=== PATIENT | male | born 1980 ===

== ENCOUNTER 2016-07-29 11:02 | Emergency (ER) | payer MEDICAID ==
--- NOTE | 2016-07-30 12:11 | ER ---
ADMIT: 07/29/2016 RM/LOC: ER [facility] MR#: [id number] 2620 [facility] [address] [place] [id number] MARCY SHAMEKA SANNY [address] [place] [id number] Emergency Room Report SEX: M AGE: 35 : 1980 DATE: 07/29/2016 This 35-year-old had a seizure earlier today, witnessed by his significant other. They initially called for an ambulance, then refused diamond picker only to come in later. PAST HISTORY: Significant for a recent TBI. He is also alcoholic with no desire to stop drinking. See T sheet for remainder history and physical. A head scan shows no acute findings. His lab work did show a prolactin level at 20.2, potassium 3.3, hemoglobin 13.1. Shoulder x-ray was negative. The patient is diagnosed with seizure, he is given 1 of Ativan in the Emergency Department and then an infusion of Keppra and a prescription for Keppra, instructed to stop drinking and to follow up with his primary doctor this coming week. DIAGNOSIS: Seizures. Lake Fenton MD/ jessica JOB #: [id number] CC: Lake Fenton MD, Attending Physician
--- NOTE | 2016-08-01 09:54 | NUR ---
Received referral from ED saying pt would like help to quit drinking. Attempted to contact pt via phone. No answer, voice mail message left.
--- NOTE | 2016-08-01 10:51 | NUR ---
Received phone call from Pt. States he has thought about treatment. States he only wants to get treatment in [place] and is not interested in out of town treatment facilities. Gave pt information on [facility] and [facility]. Contact phone numbers provided to pt. Pt denies any other needs or concerns at this time.
[2016-09-12] MEDS ORDERED: FOLVITE-DPS1 MG PO (15:23)
[2016-09-12] MEDS ORDERED: KEPPRA DPS500 MG PO (15:23)
[2016-09-12] MEDS ORDERED: LACTULOSE20 GM/30 M PO (15:24)
[2016-09-12] MEDS ORDERED: LIBRIUM-DPS25 MG PO (15:24)
[2016-09-12] MEDS ORDERED: PRILOSEC DPS20 MG PO (15:25)
[2016-09-12] MEDS ORDERED: VITAMIN B1100 MG PO (15:25)
[2016-09-12] MEDS ORDERED: THERAPEUTIC MUL1 TAB PO (15:25)
[2016-10-02] MEDS ORDERED: ATIVAN-DPS1 MG PO (11:13)
[2016-10-02] MEDS ORDERED: VITAMIN B1100 MG PO (11:14)
[2016-10-02] MEDS ORDERED: PRILOSEC DPS20 MG PO (11:14)
[2016-10-02] MEDS ORDERED: KEPPRA DPS500 MG PO (11:14)
[2016-10-02] MEDS ORDERED: FOLVITE-DPS1 MG PO (11:14)
[2016-10-02] MEDS ORDERED: THERA1 EACH PO (11:15)
[2016-10-02] MEDS ORDERED: MAG-OX400 MG PO (11:15)
[2016-10-02] MEDS ORDERED: VISTARIL-DPS25 MG PO (11:16)
[2016-10-02] MEDS ORDERED: ULTRAM DPS50 MG PO (11:16)
[2016-10-02] MEDS ORDERED: MOTRIN IB200 MG PO (11:16)
[2016-10-02] MEDS ORDERED: PHENERGAN DPS25 MG PO (11:17)
[2016-10-02] MEDS ORDERED: MAALOX DPS30 ML PO (11:18)
[2016-10-02] MEDS ORDERED: COLACE-DPS100 MG PO (11:18)
[2016-10-02] MEDS ORDERED: LACTULOSE20 GM/30 M PO (11:18)
[2016-11-22] MEDS ORDERED: LIBRIUM-DPS25 MG PO (13:39)
[2016-12-17] MEDS ORDERED: KEPPRA DPS500 MG PO (10:08)
[2016-12-17] MEDS ORDERED: PEPCID DPS20 MG PO (10:08)
[2016-12-17] MEDS ORDERED: THERA-M1 EACH PO (10:08)
== END 2016-07-29 14:15 | disposition home or self-care (01) ==
LOC: ER 11:02
DX: S01.512A Laceration without foreign body of oral cavity, initial encounter (principal); R56.9 Unspecified convulsions; R00.0 Tachycardia, unspecified; Z86.19 Personal history of other infectious and parasitic diseases; Z79.01 Long term (current) use of anticoagulants; Z79.899 Other long term (current) drug therapy; X58.XXXA Exposure to other specified factors, initial encounter

== ENCOUNTER 2016-08-12 12:36 | Emergency (ER) | payer MEDICAID ==
--- NOTE | 2016-08-20 08:11 | ER ---
ADMIT: 08/12/2016 RM/LOC: ER [facility] MR#: [id number] [address] [address] SHAMEKA VIDAL [address] [place] [address] Emergency Room Report SEX: M AGE: 35 : 1980 DATE: 08/12/2016 HISTORY OF PRESENT ILLNESS: A 35-year-old, alcoholic comes in with a seizure. He has had a history of TBI in the past. He had been started on Keppra, which is there is some question whether he is taking it or not. He was drinking heavily last night. Apparently, had a seizure this morning. See T-sheet for remainder of history and physical. CBC was significant for total bilirubin of 2.1, AST is 76, and alkaline phosphatase 184. CBC had white count of 10.9 and hemoglobin of 13.2. I did speak with Dr. Snider, who recommended increasing Keppra to 500 mg 4 times a day. He is to follow up with his primary doctor this Monday. DIAGNOSIS: Seizure. Lake Fenton MD/ jessica JOB #: [id number] CC: Lake Fenton MD, Attending Physician
[2016-09-12] MEDS ORDERED: FOLVITE-DPS1 MG PO (15:23)
[2016-09-12] MEDS ORDERED: KEPPRA DPS500 MG PO (15:23)
[2016-09-12] MEDS ORDERED: LACTULOSE20 GM/30 M PO (15:24)
[2016-09-12] MEDS ORDERED: LIBRIUM-DPS25 MG PO (15:24)
[2016-09-12] MEDS ORDERED: PRILOSEC DPS20 MG PO (15:25)
[2016-09-12] MEDS ORDERED: VITAMIN B1100 MG PO (15:25)
[2016-09-12] MEDS ORDERED: THERAPEUTIC MUL1 TAB PO (15:25)
[2016-10-02] MEDS ORDERED: ATIVAN-DPS1 MG PO (11:13)
[2016-10-02] MEDS ORDERED: VITAMIN B1100 MG PO (11:14)
[2016-10-02] MEDS ORDERED: FOLVITE-DPS1 MG PO (11:14)
[2016-10-02] MEDS ORDERED: PRILOSEC DPS20 MG PO (11:14)
[2016-10-02] MEDS ORDERED: KEPPRA DPS500 MG PO (11:14)
[2016-10-02] MEDS ORDERED: THERA1 EACH PO (11:15)
[2016-10-02] MEDS ORDERED: MAG-OX400 MG PO (11:15)
[2016-10-02] MEDS ORDERED: ULTRAM DPS50 MG PO (11:16)
[2016-10-02] MEDS ORDERED: VISTARIL-DPS25 MG PO (11:16)
[2016-10-02] MEDS ORDERED: MOTRIN IB200 MG PO (11:16)
[2016-10-02] MEDS ORDERED: PHENERGAN DPS25 MG PO (11:17)
[2016-10-02] MEDS ORDERED: MAALOX DPS30 ML PO (11:18)
[2016-10-02] MEDS ORDERED: COLACE-DPS100 MG PO (11:18)
[2016-10-02] MEDS ORDERED: LACTULOSE20 GM/30 M PO (11:18)
[2016-11-22] MEDS ORDERED: LIBRIUM-DPS25 MG PO (13:39)
[2016-12-17] MEDS ORDERED: THERA-M1 EACH PO (10:08)
[2016-12-17] MEDS ORDERED: PEPCID DPS20 MG PO (10:08)
[2016-12-17] MEDS ORDERED: KEPPRA DPS500 MG PO (10:08)
== END 2016-08-12 15:05 | disposition home or self-care (01) ==
LOC: ER 12:36
DX: G40.909 Epilepsy, unspecified, not intractable, without status epilepticus (principal); F10.10 Alcohol abuse, uncomplicated; Z79.899 Other long term (current) drug therapy

== ENCOUNTER 2016-09-08 15:25 | Observation (INO) | payer MEDICAID ==
[~2016-09-08] VITALS: Ht 165.1 cm; Wt 95.9 kg
[2016-09-12] MEDS ORDERED: FOLVITE-DPS1 MG PO (15:23)
[2016-09-12] MEDS ORDERED: KEPPRA DPS500 MG PO (15:23)
[2016-09-12] MEDS ORDERED: LIBRIUM-DPS25 MG PO (15:24)
[2016-09-12] MEDS ORDERED: LACTULOSE20 GM/30 M PO (15:24)
[2016-09-12] MEDS ORDERED: PRILOSEC DPS20 MG PO (15:25)
[2016-09-12] MEDS ORDERED: THERAPEUTIC MUL1 TAB PO (15:25)
[2016-09-12] MEDS ORDERED: VITAMIN B1100 MG PO (15:25)
--- NOTE | 2016-09-13 07:52 | HP ---
ADMIT: 09/08/2016 RM/LOC: 409 [facility] MR#: [id number] [address] [address] SHAMEKA VIDAL [address] [place] [address] History and Physical SEX: M AGE: 36 : 1980 DATE OF SERVICE: CHIEF COMPLAINT: Profound anemia. HISTORY OF PRESENT ILLNESS: Devin is a 36-year-old male, whom I saw in the office yesterday September 07 for the 1st visit. He is referred by [facility] from the emergency room. He had been seen in the emergency room 2 weeks before, I believe by Dr. Fenton for his 2nd seizure. He came into the office this morning fasting for lab work and his hemoglobin was 4.5. We, therefore, contacted him and brought him in the hospital for admission for severe anemia. His past medical history is fairly complex. He states problems began in May of this year when he slipped falling down some steps at home, hit his head, did not seek medical attention until the following day when he was admitted to hospital, ended up on the ventilator in ICU for a subdural hemorrhage. He eventually went after being in the hospital for 2 weeks according to the patient, went to rehab unit for one week. He was dismissed home and said he was doing well until he had a seizure on July, I believe, . When in the emergency room, he was placed on Keppra. He said he took it for 2 days and stopped because he felt fine and then on August 12, he had a 2nd seizure, was seen in the emergency room and they put him back on Keppra, but double dose. He has had no seizures since then. He came in to see me in the office yesterday for followup. He admitted to feeling a little bit tired and fatigued, but denied any headache, lightheadedness, palpitations, or change in stool habits. He admitted yesterday to drinking a few beers once in a while, but denied any excessive alcohol use. In review of hospital records at this time, he has history of alcohol abuse and alcoholic cirrhosis. On further questioning today, he does admit now that he did have some black stools about 2 weeks ago. As vomited in the past, in case he vomited up some blood. Does not recall vomiting up any blood lately. He thinks that maybe in May he had a hole in his stomach or possible ulcer. He denies any abdominal pain at this time. He only admits to drinking a few alcohol drinks a day at this time. According to records, he was drinking up to a gallon of whiskey a day in the past. He states he has never gone through withdrawal in the past, but sometimes he gets slow, shaky when he quits drinking. Prior to coming into the hospital today, he says he had a glass of Dr Pepper with some alcohol in it. His blood alcohol level on arrival here was 160. He is not very forthcoming with his history. He had some of the history may be unreliable. PAST MEDICAL HISTORY: Obtained from records show history of alcoholic hepatitis and possible cirrhosis. Previous history of suicidal ideation in 2008, at that time, he had a gun, required hospitalization at [facility]. ALLERGIES: NONE. ADMIT: 09/08/2016 RM/LOC: 409 [facility] MR#: [id number] [facility] [address] [address] SHAMEKA VIDAL [address] [place] [address] History and Physical SEX: M AGE: 36 : 1980 MEDICATIONS: Currently taking Keppra 1 g b.i.d. and says he has been taking it regularly. SOCIAL HISTORY: Single, apparently has three children from 2 different women. He was brought into the office by a former girlfriend, named Katherin, they have a 3-year-old daughter that they share custody, but the two of them are not together anymore and they are just together for purposes of 3-year-old. He also has another ex-girlfriend with daughters 11 and 13. He does admit to smoking a pack of cigarette per day. He has used marijuana in the past and drinks alcohol fairly regularly. FAMILY HISTORY: Positive heart disease and cancer, but not able to obtain any other information. REVIEW OF SYSTEMS: IN GENERAL: He states he has felt a little more short of breath recently, but denies any fevers, chills, sweats, or any weight change. HEENT: Denies any headache, blurry vision, or double vision. PULMONARY: Denies any cough, but does have some exertional shortness of breath and dyspnea. No orthopnea, no PND. CARDIAC: Denies any chest pain. GI: As noted. He has had occasional vomiting of blood. Occasional black stool. He said the last black stool was two weeks ago. The vomiting of blood is not certain how long ago that was, but it has been more than a week. : Negative. MUSCULOSKELETAL: He has noticed some discoloration on his lower legs. Denies any leg pain. Denies any bruising. PHYSICAL EXAMINATION: GENERAL: A 36-year-old, male, appears much older than stated age. VITAL SIGNS: Blood pressure is 118/68, pulse is 79 regular, respiratory rate is 22, and temp 98.4. Height is 5 feet 5 inches, weight is 202 pounds. HEENT: Eyes; PERRLA. EOMs intact. Sclerae are somewhat pale. Lips are not pale. Throat is moist, well hydrated, not inflamed. NECK: Supple. No lymphadenopathy. No meningeal signs. LUNGS: Clear to auscultation. HEART: Regular rate. No murmur. ABDOMEN: Soft. No megaly or tenderness. /RECTAL: Deferred. EXTREMITIES: No clubbing, cyanosis, or edema. He does have some discoloration of lower extremities consistent with venous stasis type dermatitis, but there is no edema. There are no open sores. Calves are nontender. Homans sign is negative. LABORATORY DATA: As mentioned his hemoglobin at the office was 4.5, repeated here at the hospital and it was 4.4; platelets were slightly low at 120,000. Blood alcohol level was elevated at 160. Potassium slightly low at 3.6, creatinine is 1.2, alkaline phosphatase 158, AST was elevated at 53, ALT is ADMIT: 09/08/2016 RM/LOC: 409 [facility] MR#: [id number] [address] [address] SHAMEKA VIDAL [address] [facility] [place] [address] History and Physical SEX: M AGE: 36 : 1980 normal at 36. Gamma-GT is elevated to 31. Serum iron level is low at 11. Iron-binding capacity is normal at 358. Folic acid level is 5.8. B12 level was elevated at 1235. INR is slightly elevated at 1.13. Drug screen is positive for marijuana. DIAGNOSTIC IMPRESSION: 1. Subacute severe anemia, probable upper gastrointestinal bleed, will be concerned for esophageal varices. 2. Chronic alcohol abuse. 3. Recent traumatic brain injury with subdural subarachnoid hemorrhage and basilar skull fracture. 4. Alcoholic cirrhosis. 5. Marijuana abuse. 6. Tobacco abuse. PLAN: Admit to hospital at this time for type and cross anemia workup. Blood transfusions throughout surgery, consult for gastroscopy. We will place him with alcohol withdrawal protocol. Michael Crews MD/ jessica JOB #: [id number] CC: Michael Crews, Attending Physician Michael Crews, Family Physician
--- NOTE | 2016-09-26 12:38 | CO ---
ADMIT: 09/08/2016 RM/LOC: 409 [facility] MR#: [id number] [address] [address] SHAMEKA VIDAL [address] [place] [address] Consultation SEX: M AGE: 36 : 1980 DATE OF CONSULTATION: 09/09/2016 ATTENDING PHYSICIAN: Michael Crews CONSULTING PHYSICIAN: Steven Anglin MD CHIEF COMPLAINT: Anemia, history of melena and hematemesis. HISTORY OF PRESENT ILLNESS: This is a pleasant 36-year-old male patient, admitted to Dr. Crews, who has had pretty complex past medical history. It sounds like he had a fall a few weeks ago with subdural hematoma. He was treated in the ICU for a period of time. He has been home on Keppra. He denies taking any NSAIDs or pain medicine, but he has been drinking sounds like fairly heavily, and he has a past history of alcohol abuse too. He has not been on any proton pump inhibitors that I can see. He has had a couple episodes of hematemesis as well as some melena, but he reports that it has mostly been a couple weeks ago, anyhow, he presented to Dr. Crews's office with a hemoglobin of 4.4. He was admitted and he has received several units of blood now, and I was asked to see him for possible upper endoscopy. PAST MEDICAL HISTORY: Well outlined on the chart. PHYSICAL EXAMINATION: ABDOMEN: On exam, his abdomen is obese. It is soft. It is nontender throughout. No mass or organomegaly appreciated. ASSESSMENT: Anemia, question upper gastrointestinal blood loss with melena, and hematemesis. PLAN: I have recommended proceeding with EGD. I have gone through risks and benefits of this procedure in depth with the patient. He does understand all this and agrees to proceed. Steven Anglin MD/ jessica JOB #: [id number] CC: Michael Crews, Attending Physician Michael Crews, Family Physician
--- NOTE | 2016-09-29 07:21 | DS ---
ADMIT: 09/08/2016 RM/LOC: 409 [facility] MR#: [id number] [address] [address] SHAMEKA VIDAL [address] [place] [address] General Discharge Summary SEX: M AGE: 36 : 1980 ADMISSION DATE: 09/08/2016 DISCHARGE DATE: 09/11/2016 ADMITTING DIAGNOSIS: Profound anemia. DISMISSAL DIAGNOSIS: Severe anemia secondary to subacute blood loss. COMPLICATING DIAGNOSES: 1. End-stage alcoholic liver disease. 2. Esophageal varices. 3. Alcoholic liver cirrhosis. 4. Chronic alcohol abuse. 5. Seizure disorder. 6. Marijuana abuse. 7. Tobacco abuse. 8. Recent traumatic brain injury. 9. Subdural hemorrhage. CONSULTANTS: Oc Mendez MD CHIEF COMPLAINT AND HISTORY OF PRESENT ILLNESS: See history and physical for details. A 36-year-old, male, seen in the office for 1st visit for referral from [facility] from the emergency room. He had been in the emergency room 2 weeks before. At that time, his hemoglobin, I believe, were around 11. When he came in the office, his hemoglobin was 4.5, he is admitted for the severe anemia. He has a history of chronic alcohol abuse. Recently, had fallen down steps at home, hit his head, had subdural hematoma, was on the ventilator, was in rehab unit, was dismissed about a month ago. LABORATORY DATA AND IMAGING: Please see lab summary sheets. His lab data is not available at this time. Chest x-ray was normal. COURSE IN THE HOSPITAL: Devin was admitted, typed and crossed, anemia workup instituted given his severe anemia. His hemoglobin on August 12 was 13.2; on September 08, was 4.5. Blood was drawn for anemia workup, and he was transfused with 2 units of blood. EGD was performed by Dr. Mendez that showed esophageal varices and gastritis. After transfusion of 2 units, his hemoglobin was 5.3. He was given another 2 units of packed red blood cells. Electrolytes were sodium 140, potassium 3.9, chloride 109, CO2 of 22, BUN 10, creatinine 0.7, glucose 88. Serum ammonia was elevated at 73. Hemoglobin after his 3rd and 4th units was 7.6. The following day, hemoglobin was 7.2. Liver enzymes were negative. INR was elevated. The patient refused lactulose. He was stable at time of dismissal, not having further bleeding, hemoglobin was stable, vital signs were stable, he was alert. DISCHARGE MEDICATIONS: 1. Folvite 1 mg daily. ADMIT: 09/08/2016 RM/LOC: 409 [facility] MR#: [id number] [address] [address] SHAMEKA VIDAL [address] [place] [address] General Discharge Summary SEX: M AGE: 36 : 1980 2. Keppra 1000 mg b.i.d. 3. Lactulose 30 mg b.i.d. 4. Librium 25 mg b.i.d. for three days, then daily for three days, then stop. 5. Multivitamin 1 daily. 6. Vitamin B 1 daily. DISCHARGE INSTRUCTIONS: He will be seen back in the office in 1 to 2 weeks for followup. He is to follow up with [facility]. He is put on some Prilosec 20 mg b.i.d. He was strongly advised that he needs to stop drinking completely due to his severe liver disease and esophageal varices. Michael Crews MD/ jessica JOB #: [id number] CC: Michael Crews MD, Attending Physician Michael Crews MD, Family Physician
[2016-10-02] MEDS ORDERED: ATIVAN-DPS1 MG PO (11:13)
[2016-10-02] MEDS ORDERED: KEPPRA DPS500 MG PO (11:14)
[2016-10-02] MEDS ORDERED: FOLVITE-DPS1 MG PO (11:14)
[2016-10-02] MEDS ORDERED: PRILOSEC DPS20 MG PO (11:14)
[2016-10-02] MEDS ORDERED: VITAMIN B1100 MG PO (11:14)
[2016-10-02] MEDS ORDERED: MAG-OX400 MG PO (11:15)
[2016-10-02] MEDS ORDERED: THERA1 EACH PO (11:15)
[2016-10-02] MEDS ORDERED: ULTRAM DPS50 MG PO (11:16)
[2016-10-02] MEDS ORDERED: MOTRIN IB200 MG PO (11:16)
[2016-10-02] MEDS ORDERED: VISTARIL-DPS25 MG PO (11:16)
[2016-10-02] MEDS ORDERED: PHENERGAN DPS25 MG PO (11:17)
[2016-10-02] MEDS ORDERED: MAALOX DPS30 ML PO (11:18)
[2016-10-02] MEDS ORDERED: LACTULOSE20 GM/30 M PO (11:18)
[2016-10-02] MEDS ORDERED: COLACE-DPS100 MG PO (11:18)
--- NOTE | 2016-10-04 13:26 | OR ---
ADMIT: 09/08/2016 RM/LOC: 409 [facility] MR#: [id number] [address] [address] SHAMEKA VIDAL [address] [place] [address] Operative/Delivery Room Report SEX: M AGE: 36 : 1980 SURGERY DATE: 09/09/2016 SURGEON: Oc Mendez MD PREOPERATIVE DIAGNOSIS: Anemia, question of upper gastrointestinal bleed. POSTOPERATIVE DIAGNOSIS: Grade 2 one area of some probable grade 3 esophageal varices. Diffuse gastritis with some gastric varices. Couple of 3 small antral ulcers. No active bleeding seen. PROCEDURES: EGD with biopsies of the gastric antrum, rule out H pylori. ANESTHESIA: MAC anesthesia. ESTIMATED BLOOD LOSS: Less than 5. INDICATION FOR PROCEDURE: Please see H and P. PROCEDURE IN DETAIL: After the risks, benefits, possible complications, and the alternatives had been explained, and informed consent had been obtained, the patient was taken back to the procedure room, underwent sedation. The flexible EGD scope was introduced. The esophagus was seen in the first picture and there for sure grade 2 and an area it looked like grade 3 esophageal varices. No active bleeding seen. Appeared to be kind of a distal esophageal erosion or ulcer, maneuvered through here, through the stomach, down in the second portion of the duodenum, seen in the third picture. Duodenum and duodenal bulb appeared okay. The gastric antrum is seen in picture #2, does show a couple of small ulcerations. No active bleeding was seen. Retroflexion of the scope shows some gastropathy/gastric varices and diffuse gastropathy. I did do a couple of antral biopsies just to rule out H. pylori. A little bit more oozing than sometimes, but did not see anything worrisome. After doing the biopsies, the scope was slowly withdrawn, inspecting the remainder of the esophagus on the way out and the procedure was terminated. Tolerated it well, was taken to recovery room in stable and satisfactory condition. Oc Mendez MD/ jessica JOB #: [id number] CC: Michael Crews, Attending Physician Michael Crews, Family Physician
[2016-11-22] MEDS ORDERED: LIBRIUM-DPS25 MG PO (13:39)
[2016-12-17] MEDS ORDERED: THERA-M1 EACH PO (10:08)
[2016-12-17] MEDS ORDERED: KEPPRA DPS500 MG PO (10:08)
[2016-12-17] MEDS ORDERED: PEPCID DPS20 MG PO (10:08)
== END 2016-09-11 12:30 | disposition home or self-care (01) ==
LOC: 4PCU 15:25
PROVIDERS: ADMIT Family Medicine
PROC: 0DB68ZX Excision of Stomach, Via Natural or Artificial Opening Endoscopic, Diagnostic (ICD-10-PCS; principal; 2016-09-09)
DX: K29.50 Unspecified chronic gastritis without bleeding (principal); F17.210 Nicotine dependence, cigarettes, uncomplicated; K70.30 Alcoholic cirrhosis of liver without ascites; Z79.899 Other long term (current) drug therapy

== ENCOUNTER 2016-09-29 10:28 | Emergency (ER) | payer MEDICAID ==
[~2016-09-29 10:28] MED LIST: FOLVITE-DPS1 MG PO; KEPPRA DPS500 MG PO; LACTULOSE20 GM/30 M PO; LIBRIUM-DPS25 MG PO; PRILOSEC DPS20 MG PO; THERAPEUTIC MUL1 TAB PO; VITAMIN B1100 MG PO
--- NOTE | 2016-09-30 16:12 | ER ---
ADMIT: 09/29/2016 RM/LOC: ER [facility] MR#: [id number] 2620 [facility] [address] [place] [phone] SHAMEKA VIDAL [address] [place] [address] Emergency Room Report SEX: M AGE: 36 : 1980 DATE: 09/29/2016 TIME: 1028 hours. Please refer to my T-sheet for complete H and P. Briefly, the patient is a 36- year-old who was sent over from [facility] for just increased confusion. They got him on several medications. He has a known history of alcohol abuse. He has been sober for 2 weeks. He also had a recent intracranial hemorrhage, which they were concerned about. He actually almost fell couple times. PHYSICAL EXAM: VITAL SIGNS: Here blood pressure 120/76, pulse 92, respirations 16, temp 97.7, and sat 100% GENERAL: He is in no acute distress. HEENT: Grossly normal. LUNGS: Clear. HEART: Regular. ABDOMEN: Soft. SKIN: No rash. NEURO: He is alert, oriented, really no focal findings. No cerebellar findings at this time. EMERGENCY DEPARTMENT COURSE: CBC was normal except hemoglobin 8.1, platelets 134. His hemoglobin is stable from his last several here. Chemistries normal except potassium 3.6, alkaline phosphatase 175, AST 49. CT of his head showed no acute findings. It showed intracranial hemorrhages and improving. EKG was sinus rhythm, rate 78, no changes. He was able to walk here, very stable and we are going to allow him to be discharged. ASSESSMENT: 1. General weakness secondary to medications from [facility] I believe that he is using to come off alcohol. 2. Anemia. 3. History of ETOH abuse. PLAN: May return to [facility] or continue his sobriety. Return if worse. Fluids. Rest. Follow up with Dr. Crews. Shar Nash MD/ jessica JOB #: [id number] CC: Shar Nash MD, Attending Physician Michael Crews MD, Family Physician
[2016-10-02] MEDS ORDERED: ATIVAN-DPS1 MG PO (11:13)
[2016-10-02] MEDS ORDERED: FOLVITE-DPS1 MG PO (11:14)
[2016-10-02] MEDS ORDERED: KEPPRA DPS500 MG PO (11:14)
[2016-10-02] MEDS ORDERED: PRILOSEC DPS20 MG PO (11:14)
[2016-10-02] MEDS ORDERED: VITAMIN B1100 MG PO (11:14)
[2016-10-02] MEDS ORDERED: THERA1 EACH PO (11:15)
[2016-10-02] MEDS ORDERED: MAG-OX400 MG PO (11:15)
[2016-10-02] MEDS ORDERED: MOTRIN IB200 MG PO (11:16)
[2016-10-02] MEDS ORDERED: ULTRAM DPS50 MG PO (11:16)
[2016-10-02] MEDS ORDERED: VISTARIL-DPS25 MG PO (11:16)
[2016-10-02] MEDS ORDERED: PHENERGAN DPS25 MG PO (11:17)
[2016-10-02] MEDS ORDERED: COLACE-DPS100 MG PO (11:18)
[2016-10-02] MEDS ORDERED: MAALOX DPS30 ML PO (11:18)
[2016-10-02] MEDS ORDERED: LACTULOSE20 GM/30 M PO (11:18)
[2016-11-22] MEDS ORDERED: LIBRIUM-DPS25 MG PO (13:39)
[2016-12-17] MEDS ORDERED: PEPCID DPS20 MG PO (10:08)
[2016-12-17] MEDS ORDERED: KEPPRA DPS500 MG PO (10:08)
[2016-12-17] MEDS ORDERED: THERA-M1 EACH PO (10:08)
== END 2016-09-29 12:24 | disposition home or self-care (01) ==
LOC: ER 10:28
DX: D64.9 Anemia, unspecified (principal); G40.909 Epilepsy, unspecified, not intractable, without status epilepticus

== ENCOUNTER 2016-09-30 00:06 | Inpatient (IN) | payer MEDICAID ==
[~2016-09-30] VITALS: Ht 165.1 cm; Wt 91.3 kg
--- NOTE | 2016-09-30 19:58 | ER ---
ADMIT: 09/30/2016 RM/LOC: 530 MR#: [id number] [address] [address] SHAMEKA VIDAL [address] [place] [address] Emergency Room Report SEX: M AGE: 36 : 1980 DATE: 09/30/2016 HISTORY OF PRESENT ILLNESS: The patient is a 36-year-old male with a past medical history of end-stage alcoholic liver disease, esophageal varices, traumatic brain injury, subdural hematoma, and seizure disorder, was brought here to the ER with chief complaint of multiple ground-level falls and feeling generalized weak and dizzy. The patient had been in the ER this morning for the same reason and had head CT, which did not show any acute changes and also a CBC and CMP which were noncontributory and the patient received IV fluids and was discharged to [facility]. The patient was sent back because he had another fall, this fall had no head trauma or loss of consciousness also. The patient states he is generally weak and he could barely walk and per partner, friend in the ER, the patient is confused. PHYSICAL EXAMINATION: VITAL SIGNS: The patient has stable vitals. GENERAL: Looked very tired and fatigued, answers the questions, cooperative, alert and oriented to person, place, and time. HEENT/NECK: Conjunctiva is not pale, sclera is not icteric. Trachea is midline. No stridor, no bruit. HEART: Normal S1, S2 in the heart without any murmurs. LUNGS: Normal bilateral equal breath sounds. ABDOMEN: Soft. Abdomen has no tenderness or rebound or guarding. EXTREMITIES: Also, noncontributory. The patient's ammonia level was 110. Considering the patient's multiple recent ground-level falls, dizziness, elevated ammonia and knowing that the patient is off the lactulose, hepatic encephalopathy is also at one of our top differentials. The patient received IV fluid in the ER, and orthostatic vital signs are negative. Family Medicine was consulted, and the patient was admitted for further followups and treatments. Sg Weiner MD/ jessica JOB #: [id number] CC: Sana Johnston MD, Attending Physician Michael Crews MD, Family Physician
[2016-10-02] MEDS ORDERED: ATIVAN-DPS1 MG PO (11:13)
[2016-10-02] MEDS ORDERED: PRILOSEC DPS20 MG PO (11:14)
[2016-10-02] MEDS ORDERED: KEPPRA DPS500 MG PO (11:14)
[2016-10-02] MEDS ORDERED: VITAMIN B1100 MG PO (11:14)
[2016-10-02] MEDS ORDERED: FOLVITE-DPS1 MG PO (11:14)
[2016-10-02] MEDS ORDERED: THERA1 EACH PO (11:15)
[2016-10-02] MEDS ORDERED: MAG-OX400 MG PO (11:15)
[2016-10-02] MEDS ORDERED: ULTRAM DPS50 MG PO (11:16)
[2016-10-02] MEDS ORDERED: MOTRIN IB200 MG PO (11:16)
[2016-10-02] MEDS ORDERED: VISTARIL-DPS25 MG PO (11:16)
[2016-10-02] MEDS ORDERED: PHENERGAN DPS25 MG PO (11:17)
[2016-10-02] MEDS ORDERED: COLACE-DPS100 MG PO (11:18)
[2016-10-02] MEDS ORDERED: LACTULOSE20 GM/30 M PO (11:18)
[2016-10-02] MEDS ORDERED: MAALOX DPS30 ML PO (11:18)
--- NOTE | 2016-10-06 08:12 | HP ---
ADMIT: 09/30/2016 RM/LOC: 530 [facility] MR#: [id number] [address] [address] SHAMEKA VIDAL [address] [place] [address] History and Physical SEX: M AGE: 36 : 1980 DATE OF SERVICE: CHIEF COMPLAINT: Confusion and falls. HISTORY OF PRESENT ILLNESS: The patient is a 36-year-old, male with a history of end-stage liver disease due to alcoholic hepatitis, seizure disorder, fall, traumatic brain injury with subdural hematoma, and esophageal varices who was brought into the ER for the 2nd time in 2 days due to confusion and falls. Yesterday in the emergency room, he had some confusion. He had been on several medications including lactulose, but he almost fallen a few times. He was evaluated and weakness was thought to be due to the medications that he was using to withdraw from alcohol. So, he was sent back to [facility] where he has been residing. He presented again last night with continued generalized weakness, dizziness, and fall. The fall was witnessed. He did not have any head trauma or loss of consciousness, but the patient seemed very confused. Workup in the ER revealed pneumonia level of 110. The patient is admitted. He had not been taking any of his lactulose. He was resuscitated with IV fluids. Vital signs are normal, but he was admitted for his hepatic encephalopathy and end-stage liver disease. PAST MEDICAL HISTORY: End-stage liver disease with cirrhosis, seizure disorder following a fall with TBI and subdural hematoma, history of anemia from bleeding esophageal varices, history of alcoholism, history of suicidal ideation, and GERD. SOCIAL HISTORY: The patient is single. He has three children from 2 different women. Smokes about a pack cigarettes per day. He is not using alcohol any further, has used marijuana in the past. FAMILY HISTORY: Positive for heart disease and cancer. MEDICATIONS: 1. Lorazepam 1-2 mg every 6 hours p.r.n. 2. Keppra 1000 mg twice daily. 3. Omeprazole 20 mg twice daily. 4. Thiamine. 5. Folic acid. 6. Multivitamin tablets daily. 7. Magnesium 400 mg daily. 8. Vistaril 25-50 mg every 6-8 hours as needed. 9. Trazodone 50-150 mg at bedtime as needed. ALLERGIES: NO KNOWN MEDICAL ALLERGIES. REVIEW OF SYSTEMS: In general, the patient has noted some confusion, dizziness, and weakness, but denies any fevers, chills, sweats, or weight change. Denies any headache or visual problems. No cough but does have some- exertional shortness of breath due to deconditioning. Denies any chest pain. Has previously had anemia and GI bleed from esophageal varices but denies any ADMIT: 09/30/2016 RM/LOC: 530 [facility] MR#: [id number] [address] [place] [id number] SHAMEKA VIDAL TEJAL [address] [place] [address] History and Physical SEX: M AGE: 36 : 1980 vomiting of blood or black, tarry stools. PHYSICAL EXAMINATION: VITAL SIGNS: Temp 97.3, pulse 86, respirations 16, blood pressure 126/71, O2 saturation 100% on room air. GENERAL: The patient appears to be a 36-year-old, male, who looks older than stated age. The patient is alert, but is somewhat confused with slowed mentation. HEENT: Normocephalic and atraumatic. EOMI, no scleral icterus. NECK: No JVD. No lymphadenopathy. No carotid bruit noted. LUNGS: Clear to auscultation bilaterally. CARDIAC: Regular rhythm and rate. No murmurs, rubs, or gallops. ABDOMEN: Soft, nontender, and nondistended. EXTREMITIES: No clubbing, cyanosis, or edema. LABS: On admission, ammonia was 110, repeat this morning is 67, ethanol none detected. CBC shows a white count of 8.7, hemoglobin of 7.7, platelets of 149. BMP is normal except for a glucose of 101. Head CT done in the ER shows resolving hematomas, but no recurrent bleed or acute changes. ASSESSMENT: 1. End-stage liver disease due to alcoholic cirrhosis. 2. Hepatic encephalopathy. 3. History of seizures. 4. History of fall with resulting subdural hematoma and traumatic brain injury. 5. History of alcoholism. PLAN: We will repeat the patient's ammonia level, CMP, and hemoglobin this afternoon. We will add a type and cross to his blood and labs. If he drops below 7, we will need to transfuse him though this is likely delusional, and he likely has a chronic anemia due to his end-stage liver disease. We will ask social Work to see him for discharge planning as he is currently residing in [facility] recovering from alcohol. He can have a regular diet, and we will continue his home medications. Larry Santacruz MD Resident / Michael Crews MD / jessica JOB #: [id number] CC: Michael Crews, Attending Physician Michael Crews, Family Physician
--- NOTE | 2016-10-11 07:29 | DS ---
ADMIT: 09/30/2016 RM/LOC: 530 [facility] MR#: [id number] [id number] [facility] [address] [place], [place] [address] SHAMEKA VIDAL [address] [place] [address] Discharge Summary SEX: M AGE: 36 : 1980 ADMISSION DATE: 09/30/2016 DISCHARGE DATE: 10/01/2016 DISCHARGE DIAGNOSES: 1. End-stage alcoholic cirrhosis with liver failure. 2. Hepatic encephalopathy with hyperammonemia. 3. Chronic ETOH abuse. 4. Seizures, status post traumatic subdural hematoma. BRIEF HISTORY OF PRESENT ILLNESS: The patient is a 36-year-old, male with history of end-stage liver disease due to alcoholic hepatitis, who is brought in today from [facility] where he has been recovering from alcohol addiction. He was found to have stopped taking his lactulose, which he takes for his high ammonia levels and history of hepatic encephalopathy. In the ER, his ammonia was found to be elevated at 110. He did not have any alcohol or illicit drugs on check. He was admitted, restarted on lactulose and his mentation cleared. His primary, Dr. Crews, discussed with his family members the terminal nature of his illness and the severity of his condition and the importance of staying on his medications. He was stable and discharged back to [facility]. Please see the chart for his medications. None were changed at this hospitalization. He is to follow up with Dr. Crews in 1-2 weeks from discharge. Larry Santacruz MD Resident / Michael Crews MD / vdg JOB #: [id number] CC: Michael Crews MD, Attending Physician Michael Crews MD, Family Physician
[2016-11-22] MEDS ORDERED: LIBRIUM-DPS25 MG PO (13:39)
[2016-12-17] MEDS ORDERED: PEPCID DPS20 MG PO (10:08)
[2016-12-17] MEDS ORDERED: KEPPRA DPS500 MG PO (10:08)
[2016-12-17] MEDS ORDERED: THERA-M1 EACH PO (10:08)
== END 2016-10-01 11:52 | disposition home or self-care (01) | DRG 442 ==
LOC: ER 00:06 → 5MS 03:00
PROVIDERS: ADMIT Family Medicine
DX: K72.90 Hepatic failure, unspecified without coma (principal); I85.00 Esophageal varices without bleeding; K70.10 Alcoholic hepatitis without ascites; F10.20 Alcohol dependence, uncomplicated; D50.0 Iron deficiency anemia secondary to blood loss (chronic); D63.8 Anemia in other chronic diseases classified elsewhere; K70.30 Alcoholic cirrhosis of liver without ascites; G40.909 Epilepsy, unspecified, not intractable, without status epilepticus; F17.210 Nicotine dependence, cigarettes, uncomplicated; Z91.81 History of falling; Z87.820 Personal history of traumatic brain injury; Z91.14 Patient's other noncompliance with medication regimen

== ENCOUNTER 2016-10-07 03:00 | Emergency (ER) | payer MEDICAID ==
[~2016-10-07 03:00] MED LIST changes: +ATIVAN-DPS1 MG PO; +COLACE-DPS100 MG PO; +MAALOX DPS30 ML PO; +MAG-OX400 MG PO; +MOTRIN IB200 MG PO; +PHENERGAN DPS25 MG PO; +THERA1 EACH PO; +ULTRAM DPS50 MG PO; +VISTARIL-DPS25 MG PO
--- NOTE | 2016-10-12 07:51 | ER ---
ADMIT: 10/07/2016 RM/LOC: ER [facility] MR#: [id number] [address] [address] SHAMEKA VIDAL [address] [place] [address] Emergency Room Report SEX: M AGE: 36 : 1980 DATE: 10/07/2016 CHIEF COMPLAINT: Concern he might have had a seizure. HISTORY OF PRESENT ILLNESS: The patient is a 36-year-old male with a long history of alcohol abuse and seizure disorder who presents to the ER complaining of some concern of possible seizure. He states that he has been trying to quit drinking, but did have some drinks with some friends this evening. While he was sitting in the couch a friend next to him noted that he felt like the patient was twitching some, woke him up and said he should come to get checked out. Other than being a little tired, the patient has no complaints at this time. He denies any chest pain, shortness of breath, abdominal pain, nausea, vomiting, or diarrhea. He states that he has been an alcohol treatment before and has been considering going into a program at this time, but does not particularly want to go to [facility]. PAST MEDICAL HISTORY: Significant for anemia, alcoholic liver disease, and alcoholic abuse. MEDICATIONS: See nurse's note. ALLERGIES: SEE NURSE'S NOTE. SOCIAL HISTORY: The patient admits to drinking alcohol. Denies smoking or drug use. PHYSICAL EXAMINATION: VITAL SIGNS: Blood pressure is 117/74, pulse 91, respirations 16, temp 96.9, sats 99% on room air. GENERAL: The patient is alert, oriented, in no distress. HEENT: Head is atraumatic. Pupils are equal, round, and reactive to light. There is no scleral icterus. HEART: Regular rate and rhythm. LUNGS: Clear auscultation. ABDOMEN: Soft and nontender. SKIN: Warm and dry. The patient moves all extremities equally. He has grossly normal motor sensory exam. He does have a few bruises on his lower extremities. ADMIT: 10/07/2016 RM/LOC: [facility] MR#: [id number] [address] [address] SHAMEKA VIDAL [address] [place] [address] Emergency Room Report SEX: M AGE: 36 : 1980 LABORATORY DATA: White count 6.8, hemoglobin 8.0, platelets 132, and electrolytes are normal. AST is 60, ALT of 39, ammonia 51, INR is 1.2. Prolactin is 27.3. EMERGENCY DEPARTMENT COURSE: The patient was stable in the emergency department and his description does not sound likely that he had a seizure, and his prolactin was not elevated here. I believe the patient is safe to be discharged home, and he is to follow up with Dr. Crews. Continue with his home medications. DIAGNOSIS: Alcohol abuse. Bon Soliman MD/ jessica JOB #: [id number] CC: Bon Soliman MD, Attending Physician Michael Crews MD, Family Physician
[2016-11-22] MEDS ORDERED: LIBRIUM-DPS25 MG PO (13:39)
[2016-12-17] MEDS ORDERED: KEPPRA DPS500 MG PO (10:08)
[2016-12-17] MEDS ORDERED: PEPCID DPS20 MG PO (10:08)
[2016-12-17] MEDS ORDERED: THERA-M1 EACH PO (10:08)
== END 2016-10-07 06:30 | disposition home or self-care (01) ==
LOC: ER 03:00
DX: F10.10 Alcohol abuse, uncomplicated (principal); D64.9 Anemia, unspecified; Z79.899 Other long term (current) drug therapy

== ENCOUNTER 2016-11-03 20:50 | Inpatient (IN) | payer SELFPAY ==
[~2016-11-03] VITALS: Ht 165.1 cm; Wt 94.0 kg
--- NOTE | ~2016-11-03 | FD ---
ADMIT: 11/04/2016 RM/LOC: 305 [facility] MR#: [id number] [address] [address] MARCY[address]KA [address] [place] [address] Final Diagnosis SEX: M AGE: 36 : 1980 ADMISSION DATE: 11/04/2016 DISCHARGE DATE: 11/04/2016 FINAL DIAGNOSIS: Seizure disorder. COMPLICATING DIAGNOSIS: 1. Medication noncompliance. 2. End-stage alcoholic liver disease. 3. Gastroesophageal reflux. 4. Diabetes mellitus. 5. Anemia secondary to chronic gastrointestinal blood loss. Michael Crews MD/ jessica JOB #: [id number] CC: Michael Crews MD, Attending Physician Lory Rossa MD, Family Physician
[2016-11-04] MEDS ORDERED: ATIVAN-DPS1 MG PO (18:15)
[2016-11-04] MEDS ORDERED: KEPPRA1000 MG PO (18:15)
[2016-11-04] MEDS ORDERED: PRILOSEC DPS20 MG PO (18:15)
[2016-11-04] MEDS ORDERED: FOLIC ACID1 MG PO (18:16)
[2016-11-04] MEDS ORDERED: VITAMIN B1100 MG PO (18:16)
[2016-11-04] MEDS ORDERED: THERA1 EACH PO (18:16)
[2016-11-04] MEDS ORDERED: VISTARIL-DPS25 MG PO (18:17)
[2016-11-04] MEDS ORDERED: DESYREL-DPS50 MG PO (18:17)
[2016-11-04] MEDS ORDERED: MAG-OX400 MG PO (18:17)
[2016-11-04] MEDS ORDERED: MOTRIN IB200 MG PO (18:18)
[2016-11-04] MEDS ORDERED: COLACE-DPS100 MG PO (18:18)
[2016-11-04] MEDS ORDERED: LACTULOSE20 GM/30 M PO (18:18)
[2016-11-04] MEDS ORDERED: MAALOX DPS30 ML PO (18:19)
[2016-11-04] MEDS ORDERED: PHENERGAN DPS25 MG PO (18:19)
--- NOTE | 2016-11-04 20:34 | CO ---
ADMIT: 11/04/2016 RM/LOC: 305 [facility] MR#: [id number] [address] [address] M[address]AMEKA [address] [place] [address] Consultation SEX: M AGE: 36 : 1980 DATE OF CONSULTATION: 11/04/2016 ATTENDING PHYSICIAN: Michael Crews CONSULTING PHYSICIAN: Antonio Yancey MD REASON FOR CONSULTATION: Seizure. HISTORY OF PRESENT ILLNESS: This is a 36-year-old male with history of a seizure disorder, end-stage liver disease, and history of alcohol use. He typically has maintained on Keppra for seizures. He was at his daughter's softball game and had a seizure there. Apparently, suffered a dislocated shoulder during the event. He had another seizure in the emergency room. When he had arrived to the intensive care unit, he was somewhat postictal and also little bit lethargic, provided Ativan. That is subsequently cleared. He has been resumed on his Keppra medication and is not had another seizure. Currently, he is awake and alert and denies any complaints. He denies any shortness of breath. He denies any history of previous lung disease. He did have a hemoglobin of 6.7 earlier, but tends to run a low hemoglobin in the 7 range. He did receive a transfusion earlier and subsequent hemoglobin was 7.8. PAST MEDICAL HISTORY: 1. Alcohol use. 2. End-stage liver disease. 3. Seizure disorder. 4. Esophageal varices. 5. Gastroesophageal reflux disease. 6. Diabetes. MEDICATIONS: Currently are: 1. Keppra. 2. Lactulose. 3. Nicotine. 4. Pepcid. 5. Protonix. 6. He is also on IV fluids, thiamine, and folic acid. ALLERGIES: NONE. SOCIAL HISTORY: According to the chart, he smoked but he denies tobacco use to me. FAMILY HISTORY: Positive for heart disease and cancer. REVIEW OF SYSTEMS: GENERAL: No fevers or chills. SKIN: No rash. HEAD AND NECK: No witnessed swallowing or aspiration event. EYES: No visual problems. ADMIT: 11/04/2016 RM/LOC: 305 [facility] MR#: [id number] [address] [address] [address] [place] [address] Consultation SEX: M AGE: 36 : 1980 RESPIRATORY: Listed above. CARDIAC: No anginal symptoms, orthopnea, or edema. GI: As above. : No dysuria, frequency, or hematuria. MUSCULOSKELETAL: No new arthritis or arthralgias. NEUROLOGIC: As above. PHYSICAL EXAMINATION: VITAL SIGNS: Listed on the chart and are reviewed. GENERAL: Pleasant male, awake and cooperative. SKIN: Warm and dry. No rash. HEAD AND NECK: Normocephalic. No scleral icterus. Oropharynx is clear. NECK: Supple. LUNGS: Clear to auscultation. Respirations are unlabored. HEART: Regular rate and rhythm. ABDOMEN: Protuberant, but soft. EXTREMITIES: Revealed no clubbing or cyanosis. NEUROLOGIC: He is awake, alert, and cooperative. No focal deficits. LABS AND DIAGNOSTIC DATA: Chest x-ray is clear. No evidence of infiltrate. White count 5.4, hemoglobin 7.8, and platelet count 33,000. BUN 8 and creatinine 0.5. ASSESSMENT: 1. Seizure disorder. 2. End-stage liver disease. 3. Gastroesophageal reflux disease. 4. Diabetes mellitus. 5. Anemia. It appears the seizures may have been secondary to noncompliant with his medications. He has been seizure free since admission and currently is ADMIT: 11/04/2016 RM/LOC: 305 [facility] MR#: [id number] [address] [address] SHAMEKA VIDAL [address] [place] [address] Consultation SEX: M AGE: 36 : 1980 neurologically intact. Anemia is noted, although a lot of this is chronic and he has received transfusion. There was no overt active bleeding identified. Support in the intensive care unit will be provided. I think he is very stable from an ICU standpoint and likely can be moved to a general care bed versus even the possibility of discharge has been considered by his primary care physician. Further workup and therapeutic maneuvers depending on his course. Thank you for allowing us to participate in the care of this patient. As always, if you have any questions, please feel free to contact. Antonio Yancey MD/ jessica JOB #: [id number] CC: Michael Crews, Attending Physician Lory Rosas, Family Physician Michael Crews MD
--- NOTE | 2016-11-08 20:15 | ER ---
ADMIT: 11/04/2016 RM/LOC: 305 [facility] MR#: [id number] [address] [address] SHAMEKA VIDAL [address] [place] [address] Emergency Room Report SEX: M AGE: 36 : 1980 DATE: 11/03/2016 TIME: 2050 hours. Please refer to my T-sheet for complete H and P. HISTORY OF PRESENT ILLNESS: Briefly, the patient is a 36-year-old who has a known history of a seizure disorder. He said he was watching a ball game when he does not remember what happened. The witnesses said he had a seizure. He has a known history of seizure disorder. He has not been taking his medications for over a week. He has a known history of alcohol abuse, pancytopenia, esophageal varices, liver failure, comes in complaining of right shoulder pain, and had a witnessed seizure. He is here for evaluation. PHYSICAL EXAMINATION: VITAL SIGNS: Blood pressure 136/82, pulse 102, respirations 24, temp 100.4, sat 94%. GENERAL: He is postictal. HEENT: Head is atraumatic and normocephalic. Pupils equal and reactive to light. Extraocular muscles intact. TMs clear. Nose clear. Throat clear. He does have a bitten lip. NECK: Soft and supple. LUNGS: Clear. HEART: Regular. ABDOMEN: Soft. EXTREMITIES: Grossly normal except for his right shoulder. He is having severe pain. EMERGENCY DEPARTMENT COURSE: We gave him Ativan 1 mg IV of 500 mL bolus with sepsis protocol fluids perdomo because he met the criteria. He was given 1 g of Keppra IV a total of 3 of Ativan was given because he recedes in the Emergency Department. The seizures were more controlled. We did an x-ray of his right shoulder revealed a posterior dislocation. I gave him 15 of morphine IV. It was unsuccessful to get him to relax enough to reduce this. I then gave him etomidate 10 IV at assistance in the Emergency Department from the orthopedic crew, we were able to get it reduced. He was placed in immobilizer. His CBC came back normal except hemoglobin 7.7 and platelets 56. Chemistries normal except CO2 17 and AST 56. His ETOH was 15. He will also receive thiamine 100 mg IM. He will be admitted to the hospital. I talked to Dr. Crews on city call. ASSESSMENT: ADMIT: 11/04/2016 RM/LOC: 305 [facility] MR#: [id number] [address] [address] SHAMEKA VIDAL [address] [place] [address] Emergency Room Report SEX: M AGE: 36 : 1980 1. Seizure with a known seizure disorder and noncompliant. 2. Right shoulder posterior dislocation reduced in the emergency room with conscious sedation using etomidate 10 mg IV. 3. EtOH abuse. He has not drank for a couple days with an EtOH level of 15. 4. Pancytopenia with a known history of this and stable for him. 5. Noncompliant. 6. Reduction of his shoulder. 7. Conscious sedation done in the Emergency Department. PLAN: Admit to the hospital. Critical care time was 70 minutes excluding procedures. Shar Nash MD/ jessica JOB #: [id number] CC: Michael Crews MD, Attending Physician Lory Rosas MD, Family Physician
--- NOTE | 2016-11-11 07:01 | HP ---
ADMIT: 11/04/2016 RM/LOC: 305 [facility] MR#: [id number] [address] [address] SHAMEKA VIDAL [address] [place] [address] History and Physical SEX: M AGE: 36 : 1980 DATE OF SERVICE: CHIEF COMPLAINT: Seizure. HISTORY OF PRESENT ILLNESS: This is a 36-year-old male with a past medical history significant for chronic alcohol abuse, end-stage liver disease with cirrhosis, seizure disorder, anemia, and history of esophageal varices. He was admitted with seizures and a right posterior shoulder dislocation. Apparently, the patient was at a softball game when he began seizing. According to witnesses, the seizure lasted for approximately 5 minutes. During the seizure, he fell down and dislocated his right shoulder. Upon arrival to the Emergency Department, the patient was postictal. There was no sign of loss of bowel or bladder function. The patient was in a lot of pain at that time due to his right shoulder. The patient is unable to tell me where he is or the date at this time, but he is able to admit that he is currently drinking a bottle of whiskey every 1 to 2 days and his last drink was Monday. He denies any recent hematemesis. He states that his last seizure was on Monday, and at that time, he took his Keppra. He is supposed to take his Keppra every day, but he states that he only takes it occasionally. In the ER, his vitals showed a blood pressure of 136/82, pulse of 102, respirations 25, and temp 100.4. While in the Emergency Department, he had another 2-minute seizure. He received a total of 3 mg of Ativan. Due to the right shoulder dislocation, several attempts were made to reduce that, but we were unsuccessful despite giving 15 mg of IV morphine for pain. Dr. Quick was then consulted and was able to reduce the shoulder with the use of 10 mg of IV etomidate. The patient was then placed in an immobilizer. PAST MEDICAL HISTORY: Of note, the patient was last admitted September 30 through October 01 for elevated ammonia levels due to lack of compliance with medication and not taking his lactulose. 1. End-stage liver disease with cirrhosis. 2. Chronic alcohol abuse. 3. Seizure disorder, status post traumatic brain injury and subdural hematoma from a fall. 4. Anemia. 5. History of esophageal varices. 6. History of suicidal ideation. 7. GERD. 8. Hepatic encephalopathy. 9. Diabetes mellitus. PAST SURGICAL HISTORY: None. MEDICATIONS: The patient is unable to give us that information at this time, but medications noted on his last discharge on October 01 were: 1. Lorazepam 1 to 2 mg every 6 hours as needed. 2. Omeprazole 20 mg twice daily. 3. Keppra 1000 mg b.i.d. 4. Thiamine 100 mg daily. ADMIT: 11/04/2016 RM/LOC: 305 [facility] MR#: [id number] [address] [address] SHAMEKA VIDAL [address] [place] [address] History and Physical SEX: M AGE: 36 : 1980 5. Folic acid 1 mg at noon daily. 6. Multivitamin one daily. 7. Magnesium oxide 400 mg daily. 8. Vistaril 25 to 50 mg every 6-8 hours as needed. 9. Trazodone 50 to 150 mg at bedtime as needed. 10.Ibuprofen 200 mg one to two tabs every 6 hours as needed. 11.Promethazine 25 mg one tab every 6 hours as needed. 12.Lactulose 25 mL every 3 hours. 13.Colace 100 mg b.i.d. as needed. 14.Maalox 30 mL every 6 hours as needed. ALLERGIES: NONE. SOCIAL HISTORY: The patient smokes one pack of cigarettes a day. Again, he is drinking one bottle of whiskey every 1 to 2 days, and he does have a history of past marijuana use. Of note, his urine drug screen was positive for benzodiazepines and opiates. He states that he is currently living with his aunt. FAMILY HISTORY: Significant for heart disease and cancer. REVIEW OF SYSTEMS: Unable to obtain related due to the patient's mental status. PHYSICAL EXAMINATION: VITAL SIGNS: Blood pressure 159/74, pulse 98, respirations 23, and saturating 100% on 2 L. GENERAL: He is sleepy. Unable to really answer many questions. He is oriented to person. HEENT: He has a small laceration on his bottom lip, which is hemostatic. HEART: Tachycardic, but no murmurs. LUNGS: Difficult to assess due to the patient unable to take deep breaths. ABDOMEN: Soft, nontender, and nondistended. Positive bowel sounds. EXTREMITIES: No edema. He does have a wound on the dorsal surface of his right foot. MUSCULOSKELETAL: He has tenderness to palpation of the right shoulder. He is in immobilizer. LABORATORY DATA: Sodium 140, potassium 3.7, and creatinine 0.7. White count 6.1, hemoglobin low at 7.7, and platelets 56. Lactic acid 5.9. Urine drug screen positive for benzodiazepines and opiates. CT of his head showed no acute findings. Alkaline phosphatase is 138, AST is 56, ALT is 35, and bilirubin is 1.8. Alcohol was 15. ASSESSMENT AND PLAN: 1. Seizure. He did have a negative head CT. He was given Keppra in the Emergency Department. We will plan to give his Keppra 1000 mg b.i.d. as prescribed while here in the hospital. We will watch him in the ICU due to his seizures and amount of medications that he received done here in ADMIT: 11/04/2016 RM/LOC: 305 [facility] MR#: [id number] [address] [address] SHAMEKA VIDAL [address] [place] [address] History and Physical SEX: M AGE: 36 : 1980 the ER. Unsure if the seizures are due to withdrawal or lack of medication in the last several days. He is on CIWA protocol. 2. Possible alcohol withdrawal. Again, on the CIWA protocol. 3. Chronic alcohol abuse. We will go ahead and check an ammonia level since this has been an issue in the past. 4. Posterior shoulder dislocation. Again, it has been reduced and is now in an immobilizer. Ortho has been consulted. 5. Pancytopenia. We will continue to monitor this. 6. Elevated lactic acid. This is likely due to seizure, but we will continue to monitor as he did get necessary fluids down here in the ER. 7. Anemia. Plan to repeat CBC in the a.m. He does have a type and cross done, so he can be transfused if needed. 8. History of esophageal varices. We will continue to monitor his hemoglobin. He may need an EGD if his hemoglobin continues to drop or ends up having bloody emesis. I also ordered a Hemoccult. 9. Right foot wound. I consulted Wound Care to see if there is any way that we can help this heal faster. Liyah Ibrahim, Resident / Michael Crews MD / jessica JOB #: [id number] CC: Michael Crews, Attending Physician Lory Rosas, Family Physician
[2016-11-22] MEDS ORDERED: LIBRIUM-DPS25 MG PO (13:39)
[2016-12-17] MEDS ORDERED: PEPCID DPS20 MG PO (10:08)
[2016-12-17] MEDS ORDERED: THERA-M1 EACH PO (10:08)
[2016-12-17] MEDS ORDERED: KEPPRA DPS500 MG PO (10:08)
== END 2016-11-04 15:58 | disposition home or self-care (01) | DRG 101 ==
LOC: ER 20:50 → 3ICU 11-04
PROVIDERS: ADMIT Family Medicine
PROC: 0RSJXZZ Reposition Right Shoulder Joint, External Approach (ICD-10-PCS; principal; 2016-11-04)
PROC: HZ2ZZZZ Detoxification Services for Substance Abuse Treatment (ICD-10-PCS; 2016-11-04)
PROC: 30233N1 Transfusion of Nonautologous Red Blood Cells into Peripheral Vein, Percutaneous Approach (ICD-10-PCS; 2016-11-04)
DX: G40.909 Epilepsy, unspecified, not intractable, without status epilepticus (principal); D61.818 Other pancytopenia; E11.621 Type 2 diabetes mellitus with foot ulcer; L97.519 Non-pressure chronic ulcer of other part of right foot with unspecified severity; K70.9 Alcoholic liver disease, unspecified; K74.60 Unspecified cirrhosis of liver; S43.004A Unspecified dislocation of right shoulder joint, initial encounter; X58.XXXA Exposure to other specified factors, initial encounter; F10.10 Alcohol abuse, uncomplicated; Y90.0 Blood alcohol level of less than 20 mg/100 ml; K21.9 Gastro-esophageal reflux disease without esophagitis; F17.210 Nicotine dependence, cigarettes, uncomplicated; Z91.128 Patient's intentional underdosing of medication regimen for other reason

== ENCOUNTER 2016-11-20 11:44 | Observation (INO) | payer SELFPAY ==
[~2016-11-20] VITALS: Ht 165.1 cm; Wt 94.1 kg
[~2016-11-20 11:44] MED LIST changes: +DESYREL-DPS50 MG PO; +FOLIC ACID1 MG PO; +KEPPRA1000 MG PO
--- NOTE | 2016-11-21 16:20 | ER ---
ADMIT: 11/20/2016 RM/LOC: ER [facility] MR#: [id number] [address] [address] SHAMEKA VIDAL [address] [place] [address] Emergency Room Report SEX: M AGE: 36 : 1980 DATE: 11/20/2016 ADDENDUM: CHIEF COMPLAINT: Seizure. HISTORY OF PRESENT ILLNESS: This is a 36-year-old male, who has a history of alcoholism and seizures. He had a seizure about 2-3 hours prior to arrival. He came in because he felt like he was going to seize again and he is out of his Keppra. COURSE IN THE EMERGENCY ROOM: Due to him having a fever of 101, I ordered sepsis protocol along with lipase and EtOH. Overall findings, his chest x-ray was negative for any acute findings, over-read by Dr. Nash. His UA is normal except for 1+ ketones. CMP is normal except for bicarb low at 19, total bilirubin elevated at 2.9, AST elevated at 129, alkaline phosphatase elevated at 187. Cardiac enzymes are normal. Lipase is normal. ETOH was 51. CBC; his white count 5.0, hemoglobin 8.0, and platelets 40. EKG showed sinus rhythm. PT/INR are normal except for INR slightly elevated at 1.2. Procalcitonin is 0.12. Lactic acid is 4.7. CLINICAL IMPRESSION: 1. Fever, unknown source. 2. Alcohol abuse. 3. History of seizures. DISPOSITION: I did speak with Dr. Hendrix, he will admit as [facility]. DISPOSITION: Stable at admit. RHYS Escalante / Shar Nash MD / jessica JOB #: [id number] CC: Shar Nash MD, Attending Physician Michael Crews MD, Family Physician
[2016-11-22] MEDS ORDERED: LIBRIUM-DPS25 MG PO (13:39)
--- NOTE | 2016-12-02 09:44 | HP ---
ADMIT: 11/20/2016 RM/LOC: 402 [facility] MR#: [id number] [address] [address] [address] [place] [address] History and Physical SEX: M AGE: 36 : 1980 Corrected: 11/22/20162025 [facility] DATE OF SERVICE: 11/21/2016 Admission H and P and Subsequent Discharge Summary CHIEF COMPLAINT: Seizure and fever. HISTORY OF PRESENT ILLNESS: Osmany is a very pleasant 36-year-old male, who presented to the [facility] ER as a [facility] patient yesterday after he had a witnessed seizure at home. 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 He is supposed to be on Keppra 1000 mg b.i.d., but is chronically noncompliant with this medication. He reports he is essentially unable to afford it and really in the last month has not been taking it. He was evaluated in the [facility] Emergency Department where he had a fever and an elevated lactic acid, and the decision was made to admit him to the hospital for further observation to ensure that his lactic acid was not due to infection. PAST MEDICAL HISTORY: Remarkable for: 1. Chronic alcohol abuse. 2. End-stage liver disease with cirrhosis. 3. 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 4. Chronic iron-deficiency anemia secondary to GI blood loss. 5. History of esophageal varices. 6. Chronic noncompliance with medications. 7. History of esophageal varices. 8. Gastroesophageal reflux disease. 9. History of hepatic encephalopathy. 10.Diabetes mellitus, type 2. MEDICATIONS: His outpatient medications are to include; 1. Keppra 1000 mg b.i.d. 2. Lactulose 30 mL b.i.d. 3. Folic acid 1 mg daily. 4. Librium 25 mg b.i.d. for 3 days. 5. Multivitamin daily. 6. Thiamine 100 mg daily. 7. Prilosec 20 mg b.i.d. ALLERGIES: NO KNOWN MEDICAL ALLERGIES. SOCIAL HISTORY: Osmany states that he is drinking about 3 to 4 beers per day. He denies any tobacco use. He has a history of marijuana abuse. He reports that he plans on moving back to [place] in the next several days and is thus not interested in being [facility]. He is not interested in getting inpatient detox. Previous social history indicates ADMIT: 11/20/2016 RM/LOC: 402 [facility] MR#: [id number] [address] [place] [id number] [address] [place] [address] History and Physical SEX: M AGE: 36 : 1980 that he does smoke and his previous H and P indicates he is drinking 1 bottle of whiskey every 1 to 2 days. He reports that he has some sisters in [place] who could be supportive to try and help to quit drinking. FAMILY HISTORY: Noncontributory. REVIEW OF SYSTEMS: He denies any melena, hematochezia, hematemesis, coffee- ground emesis, cough, or shortness of breath. He has been afebrile in the overnight period since admission. Remainder of his review of systems is as per HPI, all others reviewed were negative. PHYSICAL EXAMINATION: VITAL SIGNS: Blood pressure 128/74, pulse 72, respirations 18, temperature 97.5, and O2 saturation 100% on room air. GENERAL: He is awake, alert, in no acute distress. Comfortable in the exam room. HEENT: Normocephalic and atraumatic. NECK: Supple. No lymphadenopathy. No thyromegaly. HEART: Regular rate and rhythm. No murmurs, gallops, or rubs. LUNGS: Clear to auscultation bilaterally. ABDOMEN: Soft and nondistended. No rebound, guarding, or masses. EXTREMITIES: No cyanosis, clubbing, or edema. LABORATORY AND X-RAY DATA: Blood cultures are negative x2. CBC shows a hemoglobin of 7.3, white count of 2.8, and platelet count of 35; this is consistent with his chronic liver disease and alcohol use and cirrhosis. CMP shows a sodium of 135, potassium of 3.2, chloride of 103, CO2 of 23, BUN of 8, glucose of 87, creatinine 0.6, calcium of 8, phosphorus of 3.1, bilirubin of 4.6, alkaline phosphatase of 142, AST of 109, ALT of 55, and magnesium of 1.9. A viral respiratory panel was negative. Monospot was negative. Abdominal ultrasound does show gallstones in right upper quadrant, but no thickening or biliary ductal dilation. Lactic acid was mildly elevated at 2 through the ER, but this is very likely due to his chronic alcohol abuse and liver disease. Chest x-ray through the ER was negative. ASSESSMENT: 1. Seizures due to a traumatic brain injury and chronic noncompliance with antiseizure medications. 2. Cirrhosis with hematologic sequelae and metabolic sequelae. Again, the patient is noncompliant with recommendations to quit alcohol and with his lactulose. 3. History of traumatic brain injury. 4. Chronic iron-deficiency anemia secondary to gastrointestinal blood loss from his alcohol use. 5. History of esophageal varices. 6. Gastroesophageal reflux disease. 7. Hepatic encephalopathy. 8. End-stage liver disease with cirrhosis. ADMIT: 11/20/2016 RM/LOC: 402 [facility] MR#: [id number] [facility] [address] [address] [address]SMANY VIDAL [address] [place] [address] History and Physical SEX: M AGE: 36 : 1980 PLAN: Osmany is not interested in doing ADTC or staying in the hospital to do acute drug and alcohol treatment or rehab or detox. He indicates he is going to be moving back down to [place] sometime in the coming days and that he has a sister who will be driving him down there. I have recommended that he quit drinking. We will have Social Work evaluate him to see if we can get him lined up with his Keppra, his lactulose, and Librium. Otherwise, there is really very little at this point that I can do to help Osmany, much of this is really up to him to fix at this point. FOLLOWUP: I have asked that he follow up with [facility] within the next 2 to 3 days. It should be noted that he has been discharged from [facility] due to his chronic noncompliance. Nuno Hendrix MD/ jessica JOB #: [id number] CC: Nuno Hendrix, Attending Physician Nuno Hendrix, Family Physician Corrected: 11/22/20162025 [place]
[2016-12-17] MEDS ORDERED: THERA-M1 EACH PO (10:08)
[2016-12-17] MEDS ORDERED: PEPCID DPS20 MG PO (10:08)
[2016-12-17] MEDS ORDERED: KEPPRA DPS500 MG PO (10:08)
== END 2016-11-21 14:23 | disposition home or self-care (01) ==
LOC: ER 11:44 → 4PCU 14:10
PROVIDERS: ADMIT Family Medicine
DX: R56.9 Unspecified convulsions (principal); D50.0 Iron deficiency anemia secondary to blood loss (chronic); K21.9 Gastro-esophageal reflux disease without esophagitis; K74.60 Unspecified cirrhosis of liver; E11.9 Type 2 diabetes mellitus without complications; K72.90 Hepatic failure, unspecified without coma; Z79.899 Other long term (current) drug therapy